=== PATIENT | male | born 1945 | race Caucasian/White ===

== ENCOUNTER 2022-11-30 05:37 | Outpatient (CLI) | payer MEDICARE ==
[~2022-11-30] VITALS: Ht 167.7 cm; Wt 68.2 kg
[2022-11-30] MEDS ORDERED: LEVO112C4 PO (16:06)
[2022-11-30] MEDS ORDERED: ASPI-999 PO (16:06)
[2022-11-30] MEDS ORDERED: MULT400T5 PO (16:06)
[2022-11-30] MEDS ORDERED: TMSL.4C PO (16:06)
[2022-11-30] MEDS ORDERED: OMEP20TA56 PO (16:06)
[2022-11-30] MEDS ORDERED: MELO15TA39 PO (16:06)
[2022-11-30] MEDS ORDERED: LOSA25TA41 PO (16:06)
== END 2022-11-30 16:25 | disposition home or self-care (01) ==
LOC: PREOP 05:37
PROVIDERS: ATTEND Specialist
DX: Z01.818 Encounter for other preprocedural examination (principal)

== ENCOUNTER 2022-12-03 07:59 | Day surgery (SDC) | payer MEDICARE, OTHER ==
[~2022-12-03] VITALS: Ht 167.7 cm; Wt 68.2 kg
[~2022-12-03 07:59] MED LIST: ASPI-999 PO; LEVO112C4 PO; LOSA25TA41 PO; MELO15TA39 PO; MULT400T5 PO; OMEP20TA56 PO; TMSL.4C PO
[2022-12-03] MEDS ORDERED: TIMOLOL 0.5% (CATARACTS) 0.3 ML BTL OU PRN (09:15)
[2022-12-03] MEDS ORDERED: POVIDONE (BETADINE) OPHTH SOLN 5% 30 ML OP ONE (09:15)
[2022-12-03] MEDS ORDERED: MOXIFLOXACIN OPHTH SOLN 5 MG/ML 0.3 ML SYRINGE OP ONE (09:15)
[2022-12-03] MEDS: TETRACAINE 0.5% OPHTH SOLN 4 ML BTL (SINGLE DOSE ONLY) OU PRN ×4 (09:16→09:35)
[2022-12-03] MEDS: TROPICAMIDE 1% OPH SOLN (MYDRIACYL) 15 ML BTL OP SCH ×3 (09:22→09:35)
[2022-12-03] MEDS: PHENYLEPHRINE 10% OPHTH (NEO-SYN) 5 ML BTL OU SCH ×3 (09:22→09:35)
[2022-12-03 09:25] VITALS: BP 161/99
[2022-12-03] MEDS ORDERED: MIDAZOLAM 2 MG/2 ML (VERSED) VIAL ONE (09:36)
--- NOTE | 2022-12-03 09:47 | Ophthalmologist Pre-Op Note ---
Pre-Operative Progress Note H&P Reviewed The H&P was reviewed, patient examined and no changes noted. Date H&P Reviewed: Dec 03, 2022 Time H&P Reviewed: 09:47 Pre-Op Dx Cataract, Left Eye SYLVIE BRIGGS MD Dec 03, 2022 09:47
--- NOTE | 2022-12-03 10:07 | Ophthalmology Operative Report ---
Cataract removal/placement IOL PREOPERATIVE DIAGNOSIS: Cataract Left Eye POSTOPERATIVE DIAGNOSIS: Cataract Left Eye PROCEDURE: Cataract removal and placement of posterior chamber implant, left eye SURGEON: Brando Briggs ANESTHESIA: Topical with sedation COMPLICATIONS: None ESTIMATED BLOOD LOSS: Minimal DESCRIPTION OF PROCEDURE: After proper informed consent was obtained, the patient, a [id number] male, was taken to the Operating Room and the left eye was anesthetized with tetracaine. The left eye was then prepped and draped in the usual manner. A wire lid speculum was placed. A paracentesis was made at the left hand position. Preservative free lidocaine was injected into the anterior chamber followed by viscoelastic. A clear corneal incision was made in the temporal position. A capsulorrhexis was preformed and the central nuclear and cortical material were removed. The posterior capsule was polished and an El 20.0 AU00T0 was placed into the capsular bag. The residual viscoelastic was aspirated and balanced saline solution was injected into the anterior chamber. Moxifloxacin was injected into the anterior chamber. The wound was checked and found to be water tight. The patient tolerated the procedure well without complications. BRANDO BRIGGS MD Dec 03, 2022 10:07
[2022-12-03 10:15] VITALS: BP 135/90
[2022-12-03] MEDS ORDERED: acetaZOLAMIDE ER 500 MG CAP (DIAMOX SEQUELS) PO ONE (11:30)
--- NOTE | 2022-12-03 13:32 | Anesthesia-General Post-Op ---
MAC Patient Condition Mental Status/LOC: Same as Preop Cardiovascular: Satisfactory Nausea/Vomiting: Absent Respiratory: Satisfactory Pain: Controlled Complications: Absent Post Op Complications Complications None Follow Up Care/Instructions Patient Instructions None needed. Anesthesiology Discharge Order Discharge Order Patient is doing well, no complaints, stable vital signs, no apparent adverse anesthesia problems. No complications reported per nursing. LISA GUEVARA CRNA Dec 03, 2022 13:32
== END 2022-12-03 10:17 | disposition home or self-care (01) ==
LOC: SDC 07:59
PROVIDERS: ATTEND Specialist
DX: H25.9 Unspecified age-related cataract (principal); Z87.891 Personal history of nicotine dependence
CPT/HCPCS: 66984; V2632